=== PATIENT | female | born 1965 | race Two or more races ===

== ENCOUNTER 2017-12-23 19:41 | Emergency (ER) | payer OTHER ==
[2017-12-23 19:51] VITALS: BP 140/95
--- NOTE | 2017-12-23 20:00 | EDPHY ---
General Time Seen by Provider: 12/23/17 19:52 Narrative: CHIEF COMPLAINT: Abscess on back HISTORY OF PRESENT ILLNESS: Patient complains of pain left upper back so seated abscess. She 1st noticed it approximately 4 days ago as itching. Three days ago she felt and Isabelle and abscess in the mirror. It is very painful to the touch. Associated with some chills and subjective fever. She is taking ibuprofen and Aleve with moderate improvement. It has been draining spontaneously described as pus. No chest pain or shortness of breath. No lower back pain. No difficulty moving her arms but it is painful when she does so. She has not yet been evaluated but contacted her primary care physician and they were unable to see her. No other associated complaints or modifying factors. Her tetanus is up-to-date. HPI obtained using the [facility]'s certified [place] world language teacher at bedside in patient's room. REVIEW OF SYSTEMS: Ten systems reviewed and are negative unless otherwise noted in the HPI PCP: Marychuy SPECIALISTS: None PAST MEDICAL HISTORY: None PAST SURGICAL HISTORY: None SOCIAL HISTORY: Never smoker. No drug or alcohol use. Works as a warehouse puller FAMILY HISTORY: Noncontributory EXAMINATION General Appearance: Alert, no distress Head: normocephalic, atraumatic Eyes: Pupils equal and round, no conjunctival pallor or injection ENT, Mouth: Mucous membranes moist Neck: Normal inspection, supple, non-tender Respiratory: Lungs are clear to auscultation. No wheezing, rhonchi or crackles Cardiovascular: Regular rate and rhythm. No murmur Gastrointestinal: Abdomen is soft and nontender Back: Abscess as below. No midline tenderness. No crepitus. No fluctuance over the midline. Neurological: A&O, nonfocal, normal gait Skin: Warm and dry. There is a left subscapular abscess. There is induration that measures 6 cm across. There is fluctuance of 2 cm. No systemic or surrounding cellulitis beyond this. Extremities: Nontender, no pedal edema Psychiatric: Mood and affect normal Physical exam performed with using the [facility]'s certified [place] world language teacher at bedside in patient's room. DIFFERENTIAL DIAGNOSES: Including but not limited to abscess, complex abscess, cellulitis MDM: 8:10 p.m. Large left upper back abscess that is subscapular. No signs of systemic illness. Her vital signs are within normal limits. I have anesthetize the area and will proceed with incision and drainage. Tetanus is up-to-date. I have ordered 1st dose of [place], Bactrim and Keflex. I will send a wound culture of the wound. 8:45 p.m. Complex left subscapular back abscess that has been drained well. This was tolerated well. It was dressed while sterile. Wound culture has been sent. There is no acute indication with the muscle or fascia that I could appreciate. I was able to break up many loculations and irrigate with saline. I dressed the wound myself. We discussed wound care. We discussed antibiotics which will start here. We discussed pain control with [place] and ibuprofen over-the- counter. We discussed contacting primary care physician 1st thing in the morning. She needs to be seen tomorrow afternoon or Sunday by her primary care physician, or she needs to return to this emergency department Sunday for wound re-evaluation. We discussed returning sooner should she have worsening symptoms, fever, chest pain or shortness of breath. This was all discussed using the hospital's certified [place] world language teacher at bedside in patient's room. The daughter was also comfortable this plan and she is discharged home stable condition. PROCEDURE: Incision and Drainage Consent: Verbal with interpreter translator at bedside Location: Left subscapular back Length: 6 cm induration, 2 cm fluctuance Complexity: Complex Anesthesia: Local. 0.5% Marcaine 4 mL. 1% lidocaine with epinephrine 5 mL Procedure description: After good anesthesia the area was prepped in common sterile fashion. Using sterile technique I used a 11. Blade to make a 2 cm incision along lingers lines. I was able to break up loculations using blunt dissection. I was able to express significant amount of purulence. Minimal serosanguineous. I was able to explore the wound with a sterile glove to further break loculations. Wound was irrigated with 30 cc sterile saline. I do not appreciate any communication with the underlying muscle or fascia. No pulsatile bleeding. Minimal blood loss. The wound was dressed while sterile with an ABD and foam tape. I did not use any packing. Expressed: 15 mL of purulence Wound care: Daily dressing changes as discussed. Follow-up: With primary care physician or this emergency department between 24 and 48 hr Wound culture: Pending MDM discussed using the hospital's certified [place] world language teacher at bedside in patient's room. SUPERVISION: Patient was independently examined, but I discussed the case with my secondary supervising physician Dr. Marquez - History Smoking Status: Never smoked - Objective Vital Signs: Initial Vital Signs Temperature (C) 98.4 F 12/23/17 19:46 Heart Rate 89 12/23/17 19:46 Respiratory Rate 16 12/23/17 19:46 Blood Pressure 140/95 H 12/23/17 19:46 O2 Sat (%) 95 12/23/17 19:46 O2 Delivery Mode Room Air Allergies/Adverse Reactions: No Known Allergies Allergy (Unverified 12/23/17 19:51) Home Medications: Medication Instructions Recorded Cephalexin [Keflex (*)] 500 mg PO QID #40 cap 12/23/17 Hydrocodone/APAP 5/325 [[place] 1 - 2 tab PO Q4H PRN #7 tab 12/23/17 5/325 (*)] Sulfamethox/Tmp 800/160 mg 1 tab PO BID 10 Days tab 12/23/17 [Bactrim Ds] Departure - Departure Disposition: Home, Routine, Self-Care Clinical Impression: Abscess of back Condition: Good Instructions: Abscess (ED), Incision and Drainage (ED) Additional Instructions: 1. Bactrim as prescribed to completion unless called and told otherwise 2. Keflex as prescribed to completion unless called and told otherwise 3. [place] pain medication as prescribed as needed. Do not combine with alcohol or any Tylenol medication 4. Contact her primary care physician morning to be seen on Sunday or Sunday morning without fail 5. Return to the emergency department for any worsening pain, fever or chest pain. 6. Return to emergency department on Sunday if unable to be seen by primary care physician 7. Change the dressing over the wound once daily as demonstrated and discussed Referrals: [facility],. [Clinic] - As per Instructions Stand Alone Forms: Work Excuse Prescriptions: Cephalexin [Keflex (*)] 500 mg PO QID #40 cap Hydrocodone/APAP 5/325 [[place] 5/325 (*)] 1 - 2 tab PO Q4H PRN #7 tab PRN Reason: Pain, Moderate Sulfamethox/Tmp 800/160 mg [Bactrim Ds] 1 tab PO BID 10 Days tab Print Language: [place]
[2017-12-23] MEDS ORDERED: CEPHALEXIN 500MG PREPACK#4 BTL TAKEHOME ONE (20:25)
[2017-12-23] MEDS ORDERED: HYDROCOD/APAP 5/325 PREPACK#6 BTL TAKEHOME ONE (20:25)
[2017-12-23] MEDS ORDERED: SULFAMET/TMP DS PREPACK#2 BTL TAKEHOME ONE (20:25)
== END 2017-12-23 21:22 | disposition home or self-care (01) ==
PROC: 0J970ZZ Drainage of Back Subcutaneous Tissue and Fascia, Open Approach (ICD-10-PCS; principal; 2017-12-23)
DX: L02.212 Cutaneous abscess of back [any part, except buttock and flank] (principal)